=== PATIENT | female | born 1980 | race Asian ===

== ENCOUNTER 2018-11-04 17:19 | Emergency (ER) | payer OTHER ==
[~2018-11-04] VITALS: Ht 172.7 cm; Wt 80.3 kg
[2018-11-04 18:48] VITALS: BP 125/83; TEMP 97.9
== END 2018-11-04 18:50 | disposition home or self-care (01) ==
LOC: ED 17:19
DX: M54.89 Other dorsalgia (principal)
CPT/HCPCS: 96372; 99282; J1885

== ENCOUNTER 2018-11-07 23:21 | Emergency (ER) | payer OTHER ==
[~2018-11-07] VITALS: Ht 172.7 cm; Wt 80.3 kg
[2018-11-07] MEDS ORDERED: CYCL10TA35 PO (23:31)
[2018-11-07] MEDS ORDERED: IBU800 MG PO (23:31)
[2018-11-08 01:38] VITALS: BP 147/85; TEMP 98.2
== END 2018-11-08 01:39 | disposition home or self-care (01) ==
LOC: ED 23:21
DX: M54.31 Sciatica, right side (principal); R31.9 Hematuria, unspecified; W18.49XA Other slipping, tripping and stumbling without falling, initial encounter; Y92.89 Other specified places as the place of occurrence of the external cause
CPT/HCPCS: 36415; 81000; 99283

== ENCOUNTER 2019-06-23 13:00 | Emergency (ER) | payer OTHER ==
[~2019-06-23] VITALS: Ht 172.7 cm; Wt 80.7 kg
[~2019-06-23 13:00] MED LIST: CYCL10TA35 PO; IBU800 MG PO
[2019-06-23 15:15] VITALS: BP 132/89; TEMP 97.6
== END 2019-06-23 15:20 | disposition home or self-care (01) ==
LOC: ED 13:00
DX: M54.16 Radiculopathy, lumbar region (principal); X50.9XXA Other and unspecified overexertion or strenuous movements or postures, initial encounter
CPT/HCPCS: 81025; 99282; 99283

== ENCOUNTER 2021-07-14 09:41 | Outpatient (CLI) | payer OTHER ==
[2021-07-14 10:07] LABS: PLATELET COUNT 230 K/uL (152-353)
== END 2021-07-14 20:33 | disposition home or self-care (01) ==
LOC: LABW 09:41
PROVIDERS: ATTEND Nurse Practitioner
DX: D64.89 Other specified anemias (principal)
CPT/HCPCS: 36415; 85027

== ENCOUNTER 2022-09-14 20:57 | Emergency (ER) | payer OTHER ==
[~2022-09-14] VITALS: Ht 172.7 cm; Wt 80.7 kg
[2022-09-14 21:05] VITALS: TEMP 98.7
[2022-09-14 22:00] VITALS: BP 149/88
== END 2022-09-14 22:00 | disposition home or self-care (01) ==
LOC: ED 20:57
DX: M25.571 Pain in right ankle and joints of right foot (principal); M79.18 Myalgia, other site; R03.0 Elevated blood-pressure reading, without diagnosis of hypertension
CPT/HCPCS: 99282

== ENCOUNTER 2022-12-07 10:18 | Outpatient (CLI) | payer BC, OTHER | END 2022-12-07 19:20 | disposition home or self-care (01) | LOC: RAD 10:18 | PROVIDERS: ATTEND Nurse Practitioner Family | DX: M79.672 Pain in left foot (principal); M25.561 Pain in right knee ==